=== PATIENT | female | born 1995 | race Caucasian/White ===

== ENCOUNTER 2016-12-02 09:15 | Emergency (ER) | payer MEDICAID ==
[2016-12-02] MEDS ORDERED: FLUCONAZOLE 100 MG TABLET PO STA (11:11)
[2016-12-02] MEDS ORDERED: FLUCONAZOLE 100 MG TABLET ONE (11:17)
== END 2016-12-02 11:21 | disposition home or self-care (01) ==
DX: N76.0 Acute vaginitis (principal)
CPT/HCPCS: 81003; 81025; 87210; 87491; 87591; 99283; A9270

== ENCOUNTER 2018-08-16 09:10 | Emergency (ER) | payer MEDICAID ==
[2018-08-16 09:24] VITALS: BP 126/84
--- NOTE | 2018-08-16 09:58 | ED Physician Documentation ---
PD HPI UPPER EXT INJURY - Stated complaint Stated Complaint: R SHOULDER INJ - Chief complaint Chief Complaint: Ext Problem - History obtained from History obtained from: Patient - History of Present Illness Location: Right, Shoulder Type of injury: Fall (and landed onto right shoulder. Still hurting with ROM.) Timing - onset: How many days ago (3) Timing - duration: Days (3) Timing - details: Abrupt onset, Still present Worsened by: Moving, Palpating (anterolateral) Associated symptoms: No: Weakness, Numbness, Swelling Similar symptoms before: Has not had sx before Recently seen: Not recently seen Review of Systems Constitutional: denies: Fever, Chills Nose: denies: Rhinorrhea / runny nose, Congestion Throat: denies: Sore throat Respiratory: denies: Cough GI: denies: Vomiting, Diarrhea Skin: denies: Abrasion (s), Laceration (s) Neurologic: denies: Focal weakness, Numbness, Altered mental status, Head injury PD PAST MEDICAL HISTORY - Past Medical History Cardiovascular: None Respiratory: None Neuro: None Endocrine/Autoimmune: None Psych: Depression - Past Surgical History Past Surgical History: No - Present Medications Home Medications: Ambulatory Orders Medication Instructions Recorded Confirmed Sertraline [Zoloft] 50 mg PO DAILY 08/16/18 08/16/18 - Allergies Allergies/Adverse Reactions: Allergies Allergy/AdvReac Type Severity Reaction Status Date / Time No Known Drug Allergies Allergy Verified 08/16/18 09:18 - Social History Does the pt smoke?: No Smoking Status: Never smoker Does the pt drink ETOH?: No Does the pt have substance abuse?: No - Immunizations Immunizations are current?: No Immunizations: TDAP >10years/unknown PD ED PE NORMAL - Vitals Vital signs reviewed: Yes - General General: Alert and oriented X 3, No acute distress, Well developed/nourished - Neck Neck: Supple, no meningeal sign, No adenopathy - Cardiac Cardiac: RRR, No murmur - Respiratory Respiratory: Clear bilaterally, Other (no chestwall tenderness) - Derm Derm: Normal color, Warm and dry - Extremities Extremities: Other (right shoulder tender anterior and lateral. No deformity nor dislocation. Not particularly tender at AC. ) - Neuro Neuro: Alert and oriented X 3, No motor deficit, No sensory deficit Results - Vitals Vitals: Vital Signs - 24 hr 08/16/18 09:15 Temperature 36.1 C L Heart Rate 89 Respiratory 18 Rate Blood Pressure 126/84 H O2 Saturation 99 Oxygen O2 Source Room air - Rads (name of study) right shoulder Radiology: Prelim report reviewed (no fractures), See rad report PD MEDICAL DECISION MAKING - ED course Complexity details: reviewed results (no fractures), considered differential, d/w patient Departure - Departure Disposition: 01 Home, Self Care Clinical Impression: Fall from slip, trip, or stumble Qualifiers: Encounter type: initial encounter Qualified Code(s): W01.0XXA - Fall on same level from slipping, tripping and stumbling without subsequent striking against object, initial encounter Right shoulder strain Qualifiers: Encounter type: initial encounter Qualified Code(s): S46.911A - Strain of unspecified muscle, fascia and tendon at shoulder and upper arm level, right arm, initial encounter Condition: Stable Record reviewed to determine appropriate education?: Yes Instructions: ED Sprain Shoulder Follow-Up: [facility] [Provider Group] Comments: Consider some ibuprofen or naproxen twice daily for the next week for inflammation and pain. Add Tylenol if needed for pains. Sling as needed for comfort and progress use of it as able. Follow-up if not improved over the next 1-2 weeks. Discharge Date/Time: 08/16/18 10:39
--- NOTE | 2018-08-16 10:13 | XRAY Report ---
Reason: injury Procedure Date: 08/16/2018 Accession Number: [id number] / [id number] Procedure: XR - Shoulder 3 View RT CPT Code: FULL RESULT: EXAM: RIGHT SHOULDER RADIOGRAPHY EXAM DATE: 08/16/2018 09:38 AM. CLINICAL HISTORY: Fall on outstretched hand injury 2 days ago. [place] like shoulder popped in and out of socket. Difficulty and pain when moving shoulder since then. COMPARISON: Right shoulder partially visualized on chest radiograph included in XR ACUTE ABDOMEN SERIES 07/01/2008 3:23 PM. TECHNIQUE: 3 views. FINDINGS: Bones: Normal. No fracture or bone lesion. Joints: The glenohumeral and acromioclavicular joints are normal. Soft tissues: The visualized hemithorax is unremarkable. No soft tissue swelling. IMPRESSION: Normal shoulder radiography. No acute osseous abnormality. RADIA
[2018-08-16] MEDS ORDERED: IBUPROFEN 600 MG TABLET PO STA (10:21)
[2018-08-16] MEDS ORDERED: ACETAMINOPHEN 325 MG TABLET PO STA (10:21)
== END 2018-08-16 10:39 | disposition home or self-care (01) ==
LOC: ED 09:10
DX: S46.911A Strain of unspecified muscle, fascia and tendon at shoulder and upper arm level, right arm, initial encounter (principal); W01.0XXA Fall on same level from slipping, tripping and stumbling without subsequent striking against object, initial encounter
CPT/HCPCS: 73030; 99282; 99283; A9270

== ENCOUNTER 2020-04-25 11:25 | Emergency (ER) | payer MEDICAID ==
[2020-04-25 12:18] LABS: BASOPHILS % (AUTO) 0.4 %; EOSINOPHILS # (AUTO) 0.2 10^3/uL (0.0-0.7); EOSINOPHILS % (AUTO) 2.7 %; HGB - HEMOGLOBIN 13.5 g/dL (12.0-16.0); LYMPHOCYTES # (AUTO) 2.4 10^3/uL (1.5-3.5); LYMPHOCYTES % (AUTO) 32.7 %; MEAN CORPUSCULAR HEMOGLOBIN 28.7 pg (27.0-31.0); MEAN CORPUSCULAR HGB CONC 32.8 g/dL (32.0-36.0); MEAN CORPUSCULAR VOLUME 87.4 fL (81.0-99.0); MEAN PLATELET VOLUME 10.6 fL (7.9-10.8); MONOCYTES # (AUTO) 0.3 10^3/uL (0.0-1.0); MONOCYTES % (AUTO) 4.4 %; NEUTROPHILS # (AUTO) 4.4 10^3/uL (1.5-6.6); NEUTROPHILS % (AUTO) 59.5 %; PLT - PLATELET COUNT 276 10^3/uL (130-450); WHITE BLOOD COUNT 7.4 x10^3/uL (4.8-10.8)
[2020-04-25 12:35] LABS: ALBUMIN 4.7 g/dL (3.2-5.5); ALBUMIN/GLOBULIN RATIO 1.4 (1.0-2.2); BILIRUBIN,TOTAL 0.8 mg/dL (0.2-1.0); CREATININE 0.7 mg/dL (0.4-1.0)
[2020-04-25 12:49] LABS: BILIRUBIN,URINE NEGATIVE (NEGATIVE); GLUCOSE, URINE (UA) NEGATIVE (NEGATIVE); KETONES,URINE (UA) NEGATIVE (NEGATIVE); LEUKOCYTE ESTERASE, URINE NEGATIVE (NEGATIVE); NITRITE,URINE NEGATIVE (NEGATIVE); OCCULT BLOOD,URINE NEGATIVE (NEGATIVE); PROTEIN,URINE NEGATIVE (NEGATIVE); UROBILINOGEN,URINE 0.2 (NORMAL) E.U./dL (NORMAL)
[2020-04-25 12:57] LABS: CLARITY,URINE CLEAR (CLEAR); HCG UR QUAL NEGATIVE
--- NOTE | 2020-04-25 14:05 | ED Physician Documentation ---
History of Present Illness - Stated complaint Stated Complaint: FEMALE - Chief complaint Chief Complaint: Abd Pain - History obtained from History obtained from: Patient - Additonal information Additional information: Patient comes emergency department complaining of noticing blood in the toilet bowl after stooling today. Patient does note that she has been constipated for about the last week has been hard to push out her stool. Patient is also about 4 months , though she did not notice any hemorrhoids while she was . She states the blood was bright red and she has not noticed any brown or maroon or tarry stools. She did eat some spicy food yesterday and had some GI upset last night. No diarrhea. No fevers or chills. No vomiting. No bleeding from anywhere else. Patient is not on any anticoagulation. Review of Systems Ten Systems: 10 systems reviewed and negative Constitutional: reports: Reviewed and negative Eyes: reports: Reviewed and negative Ears: reports: Reviewed and negative Nose: reports: Reviewed and negative Throat: reports: Reviewed and negative Cardiac: reports: Reviewed and negative Respiratory: reports: Reviewed and negative GI: reports: Bloody / black stool : reports: Reviewed and negative Skin: reports: Reviewed and negative Musculoskeletal: reports: Reviewed and negative Neurologic: reports: Reviewed and negative Psychiatric: reports: Reviewed and negative Endocrine: reports: Reviewed and negative Immunocompromised: reports: Reviewed and negative PD PAST MEDICAL HISTORY - Past Medical History Cardiovascular: None Respiratory: None Neuro: None Endocrine/Autoimmune: None GI: None ROOM SERVICE ATTENDANT: None : None HEENT: None Psych: Depression Musculoskeletal: None Derm: None Other Past Medical History: Esophageal spasm - Past Surgical History Past Surgical History: No /ROOM SERVICE ATTENDANT: section - Present Medications Home Medications: Ambulatory Orders Medication Instructions Recorded Confirmed Sertraline [Zoloft] 50 mg PO DAILY 08/16/18 08/16/18 - Allergies Allergies/Adverse Reactions: Allergies Allergy/AdvReac Type Severity Reaction Status Date / Time No Known Drug Allergies Allergy Verified 04/25/20 11:34 - Social History Does the pt smoke?: No Smoking Status: Never smoker Does the pt drink ETOH?: No Does the pt have substance abuse?: No - Immunizations Immunizations are current?: Yes Immunizations: TDAP >10years/unknown - POLST Patient has POLST: No PD ED PE NORMAL - Vitals Vital signs reviewed: Yes - General General: Alert and oriented X 3, No acute distress - HEENT HEENT: Atraumatic, PERRL, EOMI, Moist mucous membranes - Neck Neck: Supple, no meningeal sign - Cardiac Cardiac: RRR, No murmur, Strong equal pulses - Respiratory Respiratory: No respiratory distress, Clear bilaterally - Abdomen Abdomen: Soft, Non tender, Non distended - Rectal Rectal: Other (No gross blood. Good anal tone. No mass.) - Derm Derm: Warm and dry - Extremities Extremities: No deformity - Neuro Neuro: Alert and oriented X 3 - Psych Psych: Normal mood, Normal affect Results - Vitals Vitals: Vital Signs - 24 hr 04/25/20 04/25/20 04/25/20 11:35 12:50 14:08 Temperature 36.4 C L Heart Rate 86 72 67 Respiratory 18 16 16 Rate Blood Pressure 114/74 122/87 H 123/77 O2 Saturation 97 100 100 Oxygen O2 Source Room air - Labs Labs: Laboratory Tests 04/25/20 04/25/20 04/25/20 11:45 12:13 12:13 WBC 7.4 RBC 4.70 Hgb 13.5 Hct 41.1 MCV 87.4 MCH 28.7 MCHC 32.8 RDW 13.0 Plt Count 276 MPV 10.6 Neut # (Auto) 4.4 Lymph # (Auto) 2.4 [place] # (Auto) 0.3 Eos # (Auto) 0.2 Baso # (Auto) 0.0 Absolute Nucleated RBC 0.00 Nucleated RBC % 0.0 Sodium 140 Potassium 4.3 Chloride 107 Carbon Dioxide 22 Anion Gap 11.0 BUN 20 Creatinine 0.7 Estimated GFR (MDRD) 101 Glucose 85 Calcium 9.0 Total Bilirubin 0.8 AST 17 ALT 17 Alkaline Phosphatase 109 Total Protein 8.0 Albumin 4.7 Globulin 3.3 Albumin/Globulin Ratio 1.4 Lipase 33 Urine Color YELLOW Urine Clarity CLEAR Urine pH 5.0 Ur Specific [place] >=1.030 H Urine Protein NEGATIVE Urine Glucose (UA) NEGATIVE Urine Ketones NEGATIVE Urine Occult Blood NEGATIVE Urine Nitrite NEGATIVE Urine Bilirubin NEGATIVE Urine Urobilinogen 0.2 (NORMAL) Ur Leukocyte Esterase NEGATIVE Ur Microscopic Review NOT INDICATED Urine Culture Comments NOT INDICATED Urine HCG, Qual NEGATIVE PD MEDICAL DECISION MAKING - ED course Complexity details: reviewed results, re-evaluated patient, considered differential, d/w patient ED course: Pt's h/h were normal. Rectal exam was unremarkable. I d/w pt that there is no evidence at this point that she is losing a dangerous amount of blood. We have discussed the need for follow up, should the sx continue. Departure - Departure Disposition: 01 Home, Self Care Clinical Impression: Hematochezia Condition: Stable Instructions: ED Hematochezia Stable Comments: Your labs look good. There is no evidence that you have lost a dangerous amount of blood. Additionally, your rectal exam shows no blood in your rectum at this time. Most likely, your bleeding is the results of your constipation plus some internal hemorrhoids. The best way to prevent this is by eating a high-fiber diet to help soften your stools. You may use some laxatives, but the most effective and helpful way to deal with this is by dietary modification. If you continue to have blood in your stools for more than the next couple of weeks, please speak with your primary care physician about having a colonoscopy done. Discharge Date/Time: 04/25/20 14:22
[2020-04-25 14:10] VITALS: BP 123/77
== END 2020-04-25 14:22 | disposition home or self-care (01) ==
LOC: ED 11:25
DX: K92.1 Melena (principal)
CPT/HCPCS: 36415; 80053; 81001; 81003; 81025; 83690; 85025; 87086; 99282; 99283

== ENCOUNTER 2020-08-23 13:28 | Outpatient (CLI) | payer MEDICAID ==
--- NOTE | 2020-08-23 16:42 | XRAY Report ---
PROCEDURE: Knee 3 View BILAT INDICATIONS: BILATERAL KNEE PX TECHNIQUE: 3 views of the bilateral knee(s) were acquired. COMPARISON: None. FINDINGS: Bones: No fractures or dislocations. No suspicious bony lesions. Soft tissues: No joint effusion. No suspicious soft tissue calcifications. IMPRESSION: No acute osseous abnormality. Reviewed by: Bella Arias MD on 08/23/2020 4:41 PM PST Approved by: Bella Arias MD on 08/23/2020 4:41 PM [facility] Station ID: [id number]
== END 2020-08-23 23:59 | disposition home or self-care (01) ==
LOC: DI.N 13:28
PROVIDERS: ATTEND Family Medicine
DX: M25.562 Pain in left knee (principal); M25.561 Pain in right knee

== ENCOUNTER 2021-02-06 12:46 | Outpatient (CLI) | payer MEDICAID | END 2021-02-06 12:47 | disposition home or self-care (01) | LOC: RT 12:46 | PROVIDERS: ATTEND Physician Assistant Medical | DX: J45.909 Unspecified asthma, uncomplicated (principal) | CPT/HCPCS: 94010 ==

== ENCOUNTER 2021-06-23 20:07 | Emergency (ER) | payer MEDICAID ==
[2021-06-23 20:34] LABS: BILIRUBIN,URINE NEGATIVE (NEGATIVE); GLUCOSE, URINE (UA) NEGATIVE (NEGATIVE); KETONES,URINE (UA) TRACE mg/dL (NEGATIVE); LEUKOCYTE ESTERASE, URINE NEGATIVE (NEGATIVE); NITRITE,URINE NEGATIVE (NEGATIVE); OCCULT BLOOD,URINE NEGATIVE (NEGATIVE); PROTEIN,URINE NEGATIVE (NEGATIVE); UROBILINOGEN,URINE 0.2 (NORMAL) E.U./dL (NORMAL)
[2021-06-23 20:38] LABS: CLARITY,URINE CLEAR (CLEAR); HCG UR QUAL NEGATIVE
[2021-06-23 20:42] LABS: BASOPHILS % (AUTO) 0.2 %; EOSINOPHILS # (AUTO) 0.2 10^3/uL (0.0-0.7); HCT - HEMATOCRIT 40.7 % (37.0-47.0); HGB - HEMOGLOBIN 13.9 g/dL (12.0-16.0); LYMPHOCYTES # (AUTO) 3.5 10^3/uL (1.5-3.5); LYMPHOCYTES % (AUTO) 38.4 %; MEAN CORPUSCULAR HEMOGLOBIN 30.1 pg (27.0-31.0); MEAN CORPUSCULAR HGB CONC 34.2 g/dL (32.0-36.0); MEAN CORPUSCULAR VOLUME 88.1 fL (81.0-99.0); MEAN PLATELET VOLUME 10.4 fL (7.9-10.8); MONOCYTES # (AUTO) 0.5 10^3/uL (0.0-1.0); MONOCYTES % (AUTO) 5.8 %; NEUTROPHILS # (AUTO) 4.9 10^3/uL (1.5-6.6); NEUTROPHILS % (AUTO) 53.4 %; PLT - PLATELET COUNT 314 10^3/uL (130-450); RED BLOOD COUNT 4.62 10^6/uL (4.20-5.40); RED CELL DISTRIBUTION WIDTH 11.9 % (12.0-15.0); WHITE BLOOD COUNT 9.2 x10^3/uL (4.8-10.8)
[2021-06-23] MEDS ORDERED: ONDANSETRON 4 MG/2 ML VIAL IVP STA (20:42)
[2021-06-23] MEDS ORDERED: SODIUM CHLORIDE 0.9% 1,000 ML IV STA (20:42)
[2021-06-23 20:55] LABS: ALBUMIN 4.6 g/dL (3.2-5.5); ALBUMIN/GLOBULIN RATIO 1.6 (1.0-2.2); BILIRUBIN,TOTAL 0.5 mg/dL (0.2-1.0); CALCIUM 8.8 mg/dL (8.5-10.3); CREATININE 0.6 mg/dL (0.4-1.0); POTASSIUM 3.5 mmol/L (3.5-5.0); TOTAL PROTEIN 7.5 g/dL (6.7-8.2)
[2021-06-23] MEDS ORDERED: PROCHLORPERAZINE 10 MG/2 ML VIAL IVP STA (21:00)
[2021-06-23] MEDS ORDERED: diphenhydrAMINE INJ 50 MG/ML VIAL IVP STA (21:00)
--- NOTE | 2021-06-23 21:19 | ED Physician Documentation ---
History of Present Illness - Stated complaint Stated Complaint: nausea,pelvic px,migraine - Chief complaint Chief Complaint: Neuro - Additonal information Additional information: 25-year-old female presents the emergency department for 2 concerns: 1. Has been a headache with associated nausea for about 3 days. Feels similar to previous migraines. No fevers no vomiting. 2. Her second concern is that she has been having lower abdominal cramping as well as increased vaginal discharge. She has only ever had discharge like this when she is . Last menstrual period was last month has not had a test today. She is concerned about the placement of her IUD as she has been unable to feel the strings. Review of Systems Constitutional: denies: Fever, Chills Eyes: reports: Photophobia. denies: Loss of vision Ears: reports: Reviewed and negative Nose: reports: Reviewed and negative Throat: reports: Reviewed and negative Cardiac: reports: Reviewed and negative Respiratory: denies: Dyspnea, Cough GI: reports: Abdominal Pain, Nausea : reports: Other (vaginal dc). denies: Dysuria, Frequency Skin: reports: Reviewed and negative PD PAST MEDICAL HISTORY - Past Medical History Past Medical History: Yes Cardiovascular: None Respiratory: None Neuro: Migraines Endocrine/Autoimmune: None GI: None CONFERENCE SERVICES DIRECTOR: None : None HEENT: None Psych: Depression Musculoskeletal: None Derm: None - Past Surgical History Past Surgical History: Yes /CONFERENCE SERVICES DIRECTOR: section - Present Medications Home Medications: Ambulatory Orders Medication Instructions Recorded Confirmed metroNIDAZOLE [Flagyl] 500 mg PO BID 7 Days #14 tablet 06/23/21 - Allergies Allergies/Adverse Reactions: Allergies Allergy/AdvReac Type Severity Reaction Status Date / Time No Known Drug Allergies Allergy Verified 06/23/21 20:30 - Social History Does the pt smoke?: No Smoking Status: Never smoker Does the pt drink ETOH?: No Does the pt have substance abuse?: No - Immunizations Immunizations are current?: Yes Immunizations: TDAP >10years/unknown - POLST Patient has POLST: No PD ED PE EXPANDED - General General: Alert, No acute distress - Cardiac Cardiac: Regular Rate, Radial strong equal, Pedal strong equal, Cap refill < 2 sec. No: Murmur Present - Respiratory Respiratory: Clear to ausultation jesica. No: Distress, Labored - Abdomen Abdomen: Normal Bowel sounds, Tender to palpation (Mild midline lower pelvic tenderness without guarding or rebound. Negative McBurney's.) - Female Female : Normal external, Vaginal Discharge (Copious thick white vaginal discharge. No CMT or adnexal tenderness. Uterus was mildly tender on bimanual palpation.), Cultures sent. No: CMT, Adnexal Tenderness - Back Back: Normal exam, Soft tissue tenderness - Derm Derm: Normal color, Warm and dry. No: Rash - Extremities Extremities: Normal. No: Deformity, Tenderness - Neuro Neuro: Alert and Oriented X 3, CNII-XII intact Results - Vitals Vitals: Vital Signs - 24 hr 06/23/21 06/23/21 06/23/21 20:10 21:21 22:00 Temperature 37.1 C Heart Rate 106 H 90 92 Respiratory 18 16 14 Rate Blood Pressure 128/91 H 116/80 112/88 H O2 Saturation 96 100 100 Oxygen O2 Source Room air - Labs Labs: Microbiology 06/23/21 20:56 Wet Prep - Final Vaginal Laboratory Tests 06/23/21 06/23/21 06/23/21 20:21 20:33 20:33 WBC 9.2 RBC 4.62 Hgb 13.9 Hct 40.7 MCV 88.1 MCH 30.1 MCHC 34.2 RDW 11.9 L Plt Count 314 MPV 10.4 Neut # (Auto) 4.9 Lymph # (Auto) 3.5 [place] # (Auto) 0.5 Eos # (Auto) 0.2 Baso # (Auto) 0.0 Absolute Nucleated RBC 0.00 Nucleated RBC % 0.0 Sodium 138 Potassium 3.5 Chloride 104 Carbon Dioxide 24 Anion Gap 10.0 BUN 17 Creatinine 0.6 Estimated GFR (MDRD) 120 Glucose 96 Calcium 8.8 Total Bilirubin 0.5 AST 14 ALT 10 Alkaline Phosphatase 76 Total Protein 7.5 Albumin 4.6 Globulin 2.9 Albumin/Globulin Ratio 1.6 Lipase 38 Urine Color YELLOW Urine Clarity CLEAR Urine pH 6.0 Ur Specific [place] 1.025 Urine Protein NEGATIVE Urine Glucose (UA) NEGATIVE Urine Ketones TRACE Urine Occult Blood NEGATIVE Urine Nitrite NEGATIVE Urine Bilirubin NEGATIVE Urine Urobilinogen 0.2 (NORMAL) Ur Leukocyte Esterase NEGATIVE Ur Microscopic Review NOT INDICATED Urine Culture Comments NOT INDICATED Urine HCG, Qual NEGATIVE - Rads (name of study) Pelvic US Radiology: Final report received (No torsion bilaterally. Right simple cyst. Left complex ovarian cyst.) PD MEDICAL DECISION MAKING - ED course Complexity details: reviewed results, re-evaluated patient, considered differential, d/w patient ED course: 25-year-old female presents the emergency department for evaluation of lower abdominal cramping as well as vaginal discharge. Pelvic exam was not consistent with CMT but there is copious pelvic discharge. Wet mount confirms the presence of clue cells consistent with bacterial vaginosis. Patient will be started on Flagyl. The pelvic ultrasound showed bilateral ovarian cyst but no findings of torsion. She also presented with a headache and nausea that 100% resolved with IV fluids Compazine and Zofran. I suspect a migraine variant. There are no red flags, fevers sudden onset or focal neuro deficits. Advised close follow-up with PCP. Emergent return precautions otherwise discussed. Departure - Departure Clinical Impression: Bacterial vaginosis Headache Qualifiers: Headache type: unspecified Headache chronicity pattern: acute headache Intractability: not intractable Qualified Code(s): R51.9 - Headache, unspecified Ovarian cyst Qualifiers: Laterality: bilateral Qualified Code(s): N83.201 - Unspecified ovarian cyst, right side; N83.202 - Unspecified ovarian cyst, left side Condition: Stable Record reviewed to determine appropriate education?: Yes Instructions: ED Vaginosis Bacterial Prescriptions: metroNIDAZOLE [Flagyl] 500 mg PO BID 7 Days #14 tablet Comments: Catherine wayne were seen in the emergency department today for headache, nausea as well as vaginal discharge and lower pelvic cramping. Your screening labs did not show any worrisome findings. I was able to find your IUD strings on the pelvic exam. However you did have a light of vaginal discharge. The screening lab that we sent does show that you have a condition called bacterial vaginosis. As we discussed at the bedside I would like you to fill the prescription for the Flagyl and begin taking twice daily for the next week. The ultrasound did not show any inflammation in your uterus or infection. You do have some ovarian cysts which are very common findings but not likely contributing to your lower abdominal discomfort. Please discuss this ED visit with your primary care doctor. Return immediately to the ER if your symptoms worsen, you develop fevers, have suddenly severe abdominal pain or uncontrolled vomiting.
--- NOTE | 2021-06-23 22:14 | Ultrasound Report ---
PROCEDURE: Pelvic w/Transvag+Doppler Comp INDICATIONS: pelvic cramping; ? PID TECHNIQUE: Real-time scanning was performed of the pelvic organs, with image documentation. Additional endovagi nal scanning was necessary due to incomplete visualization of the adnexal and endometrial structures by transabdominal scanning. COMPARISON: None. FINDINGS: No pathologic free abdominal or pelvic fluid. Uterus: Uterus is normal in size at 8.4 x 4.3 x 5.5 cm. The endometrium measures 3.1 mm in combined thickness. IUD is present in appropriate position. Ovaries: Right ovary measures 2.6 x 1.2 x 3.0 cm, volume 5.5 cc. There is a focus of decreased echog enicity within the right ovary measuring 1.6 x 1.1 x 1.6 cm. Left ovary measures 4.3 x 3.2 x 5.1 cm, volume of 36 cc. There is a focus of complex echogenicity within the left ovary measuring 3.2 x 2.2 x 3.2 cm. Normal Doppler flows identified within the ovaries bilaterally. IMPRESSION: 1. Simple right ovarian cyst. 2. Complex left ovarian cyst suggestive of hemorrhagic cyst. Reviewed by: Bella Arias MD on 06/23/2021 10:12 PM PST Approved by: Bella Arias MD on 06/23/2021 10:12 PM PST Station ID: [id number]
[2021-06-23 22:15] VITALS: BP 119/86
[2021-06-24 00:11] LABS: CHLAMYDIA TRACHOMATIS DNA NEGATIVE (NEGATIVE); NEISSERIA GONORRHOEAE DNA NEGATIVE (NEGATIVE); TRICHOMONAS VAGINALIS DNA NEGATIVE (NEGATIVE)
== END 2021-06-23 22:12 | disposition home or self-care (01) ==
LOC: ED 20:07
DX: N76.0 Acute vaginitis (principal); B96.89 Other specified bacterial agents as the cause of diseases classified elsewhere; R51.9 Headache, unspecified; R11.0 Nausea; N83.201 Unspecified ovarian cyst, right side; N83.202 Unspecified ovarian cyst, left side; Z97.5 Presence of (intrauterine) contraceptive device
CPT/HCPCS: 36415; 76830; 76856; 80053; 81003; 81025; 83690; 85025; 87210; 87491; 87591; 87661; 93975; 96374; 96375; 99284; J1200; 81001; 87086

== ENCOUNTER 2021-09-25 15:02 | Outpatient (CLI) | payer MEDICAID ==
[2021-09-25 18:14] LABS: ALBUMIN 4.7 g/dL (3.2-5.5); ALBUMIN/GLOBULIN RATIO 1.5 (1.0-2.2); BILIRUBIN,TOTAL 0.6 mg/dL (0.2-1.0); CALCIUM 9.1 mg/dL (8.5-10.3); CREATININE 0.7 mg/dL (0.4-1.0); TOTAL PROTEIN 7.8 g/dL (6.7-8.2)
[2021-09-25 18:31] LABS: THYROID STIMULATING HORMONE 1.41 uIU/mL (0.34-5.60)
[2021-09-25 18:33] LABS: FREE T3 3.23 pg/mL (2.5-3.9)
[2021-09-25 18:34] LABS: FREE T4 (FREE THYROXINE) 0.96 ng/dL (0.58-1.64)
[2021-09-25 18:38] LABS: PROLACTIN 19.27 ng/mL
[2021-09-25 21:48] LABS: HCG,QUALITATIVE BLOOD NEGATIVE
== END 2021-09-25 15:03 | disposition home or self-care (01) ==
LOC: LAB.N 15:02
PROVIDERS: ATTEND Physician Assistant
DX: N64.52 Nipple discharge (principal)
CPT/HCPCS: 36415; 80053; 84146; 84439; 84443; 84481; 84703

== ENCOUNTER 2021-11-20 08:00 | Outpatient (CLI) | payer MEDICAID | END 2021-11-20 08:01 | disposition home or self-care (01) | LOC: LAB.N 08:00 | PROVIDERS: ATTEND Nurse Practitioner | DX: B34.9 Viral infection, unspecified (principal); Z20.822 Contact with and (suspected) exposure to COVID-19 ==

== ENCOUNTER 2022-06-24 10:00 | Outpatient (CLI) | payer MEDICAID ==
--- NOTE | 2022-06-24 11:18 | XRAY Report ---
PROCEDURE: Lumbar Spine 2 View INDICATIONS: LOW BACK PAIN,UNSPECIFIED TECHNIQUE: 2 views of the lumbar spine were acquired. COMPARISON: None. FINDINGS: Bones: 6 [id number] vertebrae are present. For the purposes of this report, the lowest well-for med disc space is designated as L5-S1 the thoracolumbar transitional element is designated T12. There is bilateral spondylolysis of L5 with grade 1 anterolisthesis of L5 on S1 measuring approximate ly 3 mm. No vertebral body compression fractures. No suspicious bony lesions. Soft tissues: Overlying bowel gas pattern is normal. No suspicious soft tissue calcifications. IMPRESSION: 1.No acute osseous abnormality. If symptoms persist or there is continued clinical concern, further e valuation with MRI or CT may be helpful. 2.Transitional thoracolumbar anatomy as described in the body the report. Correlation with complete s pine radiographs is recommended prior to any elective surgical procedure. 3.Bilateral spondylolysis of L5 with mild grade 1 anterolisthesis of L5 on S1. Reviewed by: Jhony Balbuena MD on 06/24/2022 11:16 AM PST Approved by: Jhony Balbuena MD on 06/24/2022 11:16 AM PST Station ID: [id number]
== END 2022-06-24 10:01 | disposition home or self-care (01) ==
LOC: DI 10:00
PROVIDERS: ATTEND Family Medicine
DX: M47.816 Spondylosis without myelopathy or radiculopathy, lumbar region (principal); M43.17 Spondylolisthesis, lumbosacral region

== ENCOUNTER 2022-08-12 08:00 | Outpatient (CLI) | payer MEDICAID ==
[2022-08-12 17:44] LABS: BASOPHILS % (AUTO) 0.3 %; EOSINOPHILS # (AUTO) 0.1 10^3/uL (0.0-0.7); HCT - HEMATOCRIT 44.4 % (37.0-47.0); HGB - HEMOGLOBIN 14.4 g/dL (12.0-16.0); LYMPHOCYTES # (AUTO) 2.1 10^3/uL (1.5-3.5); LYMPHOCYTES % (AUTO) 28.7 %; MEAN CORPUSCULAR HGB CONC 32.4 g/dL (32.0-36.0); MEAN CORPUSCULAR VOLUME 89.5 fL (81.0-99.0); MONOCYTES # (AUTO) 0.3 10^3/uL (0.0-1.0); MONOCYTES % (AUTO) 4.1 %; NEUTROPHILS # (AUTO) 4.8 10^3/uL (1.5-6.6); NEUTROPHILS % (AUTO) 65.6 %; PLT - PLATELET COUNT 338 10^3/uL (130-450); RED BLOOD COUNT 4.96 10^6/uL (4.20-5.40); RED CELL DISTRIBUTION WIDTH 12.3 % (12.0-15.0); WHITE BLOOD COUNT 7.4 x10^3/uL (4.8-10.8)
[2022-08-12 17:56] LABS: ALBUMIN 4.7 g/dL (3.2-5.5); ALBUMIN/GLOBULIN RATIO 1.4 (1.0-2.2); BILIRUBIN,TOTAL 0.6 mg/dL (0.2-1.0); CALCIUM 9.1 mg/dL (8.5-10.3); CREATININE 0.7 mg/dL (0.4-1.0); TOTAL PROTEIN 8.1 g/dL (6.7-8.2)
== END 2022-08-12 23:59 | disposition home or self-care (01) ==
LOC: LAB.N 08:00
PROVIDERS: ATTEND Physician Assistant Medical
DX: R53.83 Other fatigue (principal)
CPT/HCPCS: 36415; 80053; 83690; 84443; 85025

== ENCOUNTER 2022-09-27 23:00 | Outpatient (CLI) | payer MEDICAID | END 2022-09-27 23:01 | disposition critical access hospital (66) | LOC: EMS 23:00 | DX: R10.84 Generalized abdominal pain (principal); R11.2 Nausea with vomiting, unspecified; R19.7 Diarrhea, unspecified; R53.81 Other malaise | CPT/HCPCS: A0425; A0427; A0999 ==

== ENCOUNTER 2022-09-27 23:17 | Emergency (ER) | payer MEDICAID ==
--- OUTSIDE RECORDS SUMMARY | 2022-09-27 23:41 | EXTERNAL MEDICAL SUMMARY RPT | Continuity of Care Document ---
:1995 Author Organization [facility] Address [address] [place] [address] Phone Allergies No information. Encounters No information. Functional Status No information. Immunizations No information. Medications No information. Problems date description facility 2022-09-16 17:01 Spondylolisthesis, [facility] 2022-09-16 17:01 Strain of muscle, fascia and tendon of [facility] back, initial e Procedures No information. Results/Labs test date author facility value unit interpret ation Result panel 1 (unknown) (no (unknown) (unknown) (no value) (units (unk nown) date) unknown) (unknown) (no (unknown) (unknown) [id number] (units (unkno wn) date) unknown) (unknown) (no (unknown) (unknown) 09/16/22 (units (unkno wn) date) unknown) (unknown) (no (unknown) (unknown) [address] [place] [address] (units (unknown) date) unknown) (unknown) (no (unknown) (unknown) 09/04/2022, 15:25. (units (unknown) date) unknown) (unknown) (no (unknown) (unknown) 5 VIEWS, (units (unkno wn) date) unknown) (unknown) (no (unknown) (unknown) Accession Number: (units (unknown) date) [id number] unknown) (unknown) (no (unknown) (unknown) Age/Sex: 26 / F (units (unknown) date) Date of Service: unknown) (unknown) (no (unknown) (unknown) Alignment and (units ( unknown) date) Curvature: There unknown) is minimal anterolisthesis at L5-S1. (unknown) (no (unknown) (unknown) NICOLE Gilbert (units ( unknown) date) [id number] unknown) (unknown) (no (unknown) (unknown) Approved by: (units (u nknown) date) Valdemar Ivory, unknown) M.D. on 09/16/2022 at 17:39 (unknown) (no (unknown) (unknown) Bone Marrow: (units (u nknown) date) Marrow is of unknown) normal overall signal. No acute vertebral body (unknown) (no (unknown) (unknown) COMPAR[facility]: (units (un known) date[facility] WITH FLEXION EXTENSION (unknown) (no (unknown) (unknown) : 1995 (units (unknown) date) Acct:[id number] unknown) (unknown) (no (unknown) (unknown) Dictated by: (units (u nknown) date) cari Saenz M.D. on 09/16/2022 at 17:37 (unknown) (no (unknown) (unknown) FINDINGS: (units (unkn own) date) unknown) (unknown) (no (unknown) (unknown) IMPRESSION: Focal (units (unknown) date) mild L5-S1 unknown) degenerative change. (unknown) (no (unknown) (unknown) INDICATIONS: (units (u nknown) date) SPONDYLOLISTHESIS, unknown) LUMBAR REGION (unknown) (no (unknown) (unknown) Image quality: (units (unknown) date) Diagnostic. 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 unknown) (unknown) (no (unknown) (unknown) L2-L3: Normal (units ( unknown) date) appearance. unknown) (unknown) (no (unknown) (unknown) L3-L4: Normal (units ( unknown) date) appearance. unknown) (unknown) (no (unknown) (unknown) L4-L5: Normal (units ( unknown) date) appearance. unknown) (unknown) (no (unknown) (unknown) L5-S1: The disc (units (unknown) date) height and disk unknown) signal are well-preserved. Mild generalized (unknown) (no (unknown) (unknown) Loc: MRI (units (unkno wn) date) unknown) (unknown) (no (unknown) (unknown) Magnetic (units (unkno wn) date) Resonance Report unknown) (unknown) (no (unknown) (unknown) No significant (units (unknown) date) central canal unknown) narrowing is seen. (unknown) (no (unknown) (unknown) Noncontrast (units (un known) date) sagittal T1 spin unknown) echo and T2 fast echo, sagittal STIR, and T2 fast (unknown) (no (unknown) (unknown) Ordering (units (unkno wn) date) Provider: unknown) Hodan Quezada P.A-C (unknown) (no (unknown) (unknown) PROCEDURE: MR (units ( unknown) date) LUMBAR SPINE WO unknown) CON (unknown) (no (unknown) (unknown) Paraspinous Soft (units (unknown) date) Tissues: No unknown) paravertebral masses. (unknown) (no (unknown) (unknown) Patient: (units (unkno wn) date) Catherine Singh J unknown) MR#: [id number] (unknown) (no (unknown) (unknown) Procedure: MR (units ( unknown) date) lumbar spine wo unknown) con (unknown) (no (unknown) (unknown) Signed (units (unkno wn) date) unknown) (unknown) (no (unknown) (unknown) Spinal Cord: (units (u nknown) date) Conus medullaris unknown) terminates at the L1 level. Visualized cord (unknown) (no (unknown) (unknown) T12-L1: Normal (units (unknown) date) appearance. unknown) (unknown) (no (unknown) (unknown) TECHNIQUE: (units (unk nown) date) unknown) (unknown) (no (unknown) (unknown) compression (units (un known) date) unknown) (unknown) (no (unknown) (unknown) demonstrates (units (u nknown) date) unknown) (unknown) (no (unknown) (unknown) disc bulge (units (unk nown) date) unknown) (unknown) (no (unknown) (unknown) fractures. (units (unk nown) date) unknown) (unknown) (no (unknown) (unknown) is seen. There is (units (unknown) date) mild right-sided unknown) and moderate left-sided neural foraminal (unknown) (no (unknown) (unknown) level. (units (unkno wn) date) unknown) (unknown) (no (unknown) (unknown) may be performed. (units (unknown) date) unknown) (unknown) (no (unknown) (unknown) narrowing. (units (unk nown) date) unknown) (unknown) (no (unknown) (unknown) normal signal and (units (unknown) date) size. unknown) (unknown) (no (unknown) (unknown) spin echo (units (unkn own) date) unknown) (unknown) (no (unknown) (unknown) through the (units (un known) date) lumbar spine. In unknown) cases with scoliosis, additional coronal T2 fast Social History No information. Vital Signs No information.
[2022-09-28 00:08] LABS: BASOPHILS % (AUTO) 0.2 %; EOSINOPHILS # (AUTO) 0.1 10^3/uL (0.0-0.7); EOSINOPHILS % (AUTO) 0.8 %; HCT - HEMATOCRIT 37.1 % (37.0-47.0); HGB - HEMOGLOBIN 12.1 g/dL (12.0-16.0); LYMPHOCYTES # (AUTO) 1.1 10^3/uL (1.5-3.5); LYMPHOCYTES % (AUTO) 10.1 %; MEAN CORPUSCULAR HGB CONC 32.6 g/dL (32.0-36.0); MEAN PLATELET VOLUME 10.5 fL (7.9-10.8); MONOCYTES # (AUTO) 0.5 10^3/uL (0.0-1.0); MONOCYTES % (AUTO) 4.5 %; NEUTROPHILS % (AUTO) 84.1 %; PLT - PLATELET COUNT 244 10^3/uL (130-450); RED BLOOD COUNT 4.17 10^6/uL (4.20-5.40); RED CELL DISTRIBUTION WIDTH 11.9 % (12.0-15.0); WHITE BLOOD COUNT 10.8 x10^3/uL (4.8-10.8)
--- NOTE | 2022-09-28 00:13 | ED Physician Documentation ---
PD HPI NVD - Stated complaint Stated Complaint: ABD PAIN - Chief complaint Chief Complaint: Abd Pain - History obtained from History obtained from: Patient - History of Present Illness Timing - onset: How many days ago (1) Timing - duration: Days (1) Timing - details: Abrupt onset, Still present Associated symptoms: Abdominal pain (cramping intemittent), Loss of appetite. No: Fever, Hematemesis, Melena Contributing factors: No: Bad food, Recent antibiotics Similar symptoms before: Has not had sx before Review of Systems Constitutional: reports: Myalgias, Fatigue. denies: Fever Nose: denies: Rhinorrhea / runny nose, Congestion Throat: denies: Sore throat Respiratory: denies: Cough GI: reports: Abdominal Pain (cramping intermittent), Nausea, Vomiting, Diarrhea. 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 - Past Surgical History Past Surgical History: Yes /MOLDER FLOOR: section - Present Medications Home Medications: Ambulatory Orders Medication Instructions Recorded Confirmed Atomoxetine HCl [Strattera] 40 mg PO DAILY 09/27/22 09/27/22 Acetaminophen [Acetaminophen Extra 500 mg PO QID PRN #50 tablet 09/28/22 Strength] HYDROcod/ACETAM 5/325 [[place] 5/325] 1 ea PO Q6H PRN #12 tablet 09/28/22 Ondansetron Odt [Zofran] 4 mg TL Q6H PRN #10 tablet 09/28/22 tiZANidine [Zanaflex] 4 mg PO Q8H PRN #25 tablet 09/28/22 - Allergies Allergies/Adverse Reactions: Allergies Allergy/AdvReac Type Severity Reaction Status Date / Time No Known Drug Allergies Allergy Verified 09/27/22 23:25 - Social History Does the pt smoke?: No Smoking Status: Never smoker Does the pt drink ETOH?: Yes Does the pt have substance abuse?: No Substance Use and Type: Marijuana - Immunizations Immunizations are current?: Yes Immunizations: TDAP >10years/unknown - POLST Patient has POLST: No PD ED PE NORMAL - Vitals Vital signs reviewed: Yes - General General: Alert and oriented X 3, Well developed/nourished, Other (appears uncomfortable due to nausea and back pain. ) - HEENT HEENT: Pharynx benign - Neck Neck: Supple, no meningeal sign, No adenopathy - Cardiac Cardiac: RRR, No murmur - Respiratory Respiratory: Clear bilaterally - Abdomen Abdomen: Soft, Non tender, Non distended - Derm Derm: Normal color, Warm and dry - Neuro Neuro: Alert and oriented X 3, No motor deficit, No sensory deficit Results - Vitals Vitals: Oxygen O2 Source Room air - Labs Labs: Laboratory Tests 09/28/22 09/28/22 09/28/22 00:03 00:03 01:05 WBC 10.8 RBC 4.17 L Hgb 12.1 Hct 37.1 MCV 89.0 MCH 29.0 MCHC 32.6 RDW 11.9 L Plt Count 244 MPV 10.5 Neut # (Auto) 9.0 H Lymph # (Auto) 1.1 L [place] # (Auto) 0.5 Eos # (Auto) 0.1 Baso # (Auto) 0.0 Absolute Nucleated RBC 0.00 Nucleated RBC % 0.0 Sodium 138 Potassium 3.8 Chloride 109 Carbon Dioxide 25 Anion Gap 4.0 L BUN 18 Creatinine 0.8 Estimated GFR (MDRD) 85 L Glucose 94 Calcium 7.7 L Total Bilirubin 0.7 AST 12 ALT 10 Alkaline Phosphatase 55 Total Protein 6.5 L Albumin 3.9 Globulin 2.6 Albumin/Globulin Ratio 1.5 Lipase 29 Urine Color DARK YELLOW Urine Clarity CLEAR Urine pH 5.5 Ur Specific [place] >=1.030 H Urine Protein 30 H Urine Glucose (UA) NEGATIVE Urine Ketones TRACE Urine Occult Blood LARGE H Urine Nitrite NEGATIVE Urine Bilirubin NEGATIVE Urine Urobilinogen 0.2 (NORMAL) Ur Leukocyte Esterase NEGATIVE Urine RBC 6-10 H Urine WBC 0-3 Ur Squamous Epith Cells MOD Squamous H Urine Bacteria Few Urine Mucus Few Strands Ur Microscopic Review INDICATED Urine Culture Comments NOT INDICATED PD Medical Decision Making - ED course Complexity details: reviewed results, considered differential, d/w patient ED course: The patient has had ongoing low back pain. She started with nausea and vomiting with some loose stool today. It seems likely to be of viral gastroenteritis. She does not have any abdominal tenderness. The vomiting has increased her back pain but that was again pre-existing. No noted blood in her vomit. She was given IV fluids as well as medication of ondansetron for nausea and Dilaudid for pain mainly of her back with to help with stomach cramps as well. Recheck of the abdomen still did not show any local tenderness or actually any tenderness at all on reexam. She is able to take fluids okay after the fluids and antiemetics. At this point it seems reasonable the patient is stable for discharge. I did not see need for imaging of the abdomen such as CT scan as I had low suspicion for local process such as appendix or gallbladder. Departure - Departure Disposition: 01 Home, Self Care Clinical Impression: Lumbar back pain Nausea and vomiting Qualifiers: Vomiting type: unspecified Qualified Code(s): R11.2 - Nausea with vomiting, unspecified Condition: Stable Record reviewed to determine appropriate education?: Yes Instructions: ED Nausea Vomiting Prescriptions: Acetaminophen [Acetaminophen Extra Strength] 500 mg PO QID PRN #50 tablet PRN Reason: Pain HYDROcod/ACETAM 5/325 [[place] 5/325] 1 ea PO Q6H PRN #12 tablet PRN Reason: Pain tiZANidine [Zanaflex] 4 mg PO Q8H PRN #25 tablet PRN Reason: Spasms Ondansetron Odt [Zofran] 4 mg TL Q6H PRN #10 tablet PRN Reason: Nausea / Vomiting Comments: It's good you are feeling a bit better here with the fluids and medications. Most likely your nausea and vomiting relates to an acute viral illness. I would presume it to last for 2 to 3 days. Use ondansetron every 4-6 hours if needed for nausea and vomiting. Small frequent fluids and bland food. You can add antacid such as Maalox or Mylanta if needed. Tylenol every 4-6 hours if needed for pains. I would avoid anti-inflammatory such as ibuprofen or naproxen since your stomach is likely irritated from this. Also avoid spicy foods for several days. Regarding your back pain, I would suggest Tylenol 4 times daily regularly to help with pain. Add hydrocodone/acetaminophen every 6-8 hours sparingly if needed for worse pain at times. You could also try tizanidine muscle relaxant and see if that helps as well. Follow-up with the pain clinic I believe you you said you are had an appointment with. Follow-up with your primary care if the nausea part has not improved over the next couple of days. Return to the ER if needed. I sent your prescriptions to your preferred pharmacy, [facility]. Discharge Date/Time: 09/28/22 02:39
[2022-09-28 00:21] LABS: ALBUMIN 3.9 g/dL (3.2-5.5); ALBUMIN/GLOBULIN RATIO 1.5 (1.0-2.2); BILIRUBIN,TOTAL 0.7 mg/dL (0.2-1.0); CALCIUM 7.7 mg/dL (8.5-10.3); CREATININE 0.8 mg/dL (0.4-1.0); POTASSIUM 3.8 mmol/L (3.5-5.0); TOTAL PROTEIN 6.5 g/dL (6.7-8.2)
[2022-09-28] MEDS ORDERED: SODIUM CHLORIDE 0.9% 1,000 ML IV STA (00:31)
[2022-09-28] MEDS ORDERED: ONDANSETRON 4 MG/2 ML VIAL IVP STA (00:31)
[2022-09-28] MEDS ORDERED: HYDROmorphone 0.5 MG/0.5 ML SYRINGE IVP STA (00:31)
[2022-09-28] MEDS ORDERED: KETOROLAC 15 MG/ML VIAL IVP STA (00:31)
[2022-09-28 01:26] LABS: BILIRUBIN,URINE NEGATIVE (NEGATIVE); GLUCOSE, URINE (UA) NEGATIVE (NEGATIVE); KETONES,URINE (UA) TRACE mg/dL (NEGATIVE); LEUKOCYTE ESTERASE, URINE NEGATIVE (NEGATIVE); NITRITE,URINE NEGATIVE (NEGATIVE); OCCULT BLOOD,URINE LARGE (NEGATIVE); PH,URINE 5.5 PH (5.0-7.5); PROTEIN,URINE 30 mg/dL (NEGATIVE); UROBILINOGEN,URINE 0.2 (NORMAL) E.U./dL (NORMAL)
[2022-09-28 01:27] LABS: CLARITY,URINE CLEAR (CLEAR)
[2022-09-28 01:32] LABS: BACTERIA,URINE Few /HPF (None Seen); MUCUS,URINE Few Strands; SQUAMOUS EPITHELIAL CELL,UR MOD Squamous (<= Few); WBC,URINE 0-3 /HPF (0-5)
[2022-09-28 02:40] VITALS: BP 113/76
== END 2022-09-28 02:39 | disposition home or self-care (01) ==
LOC: EDUNIT# → ED 23:17
DX: R11.2 Nausea with vomiting, unspecified (principal); M54.50 Low back pain, unspecified
CPT/HCPCS: 36415; 80053; 81001; 83690; 85025; 96361; 96374; 96375; 99283; 99284; J1170; 81003; 87086

== ENCOUNTER 2023-04-02 13:37 | Outpatient (CLI) | payer MEDICAID | END 2023-04-02 13:38 | disposition home or self-care (01) | LOC: LAB.N 13:37 | PROVIDERS: ATTEND Physician Assistant | DX: N91.2 Amenorrhea, unspecified (principal) | CPT/HCPCS: 36415; 84703 ==

== ENCOUNTER 2023-04-03 08:00 | Outpatient (CLI) | payer MEDICAID ==
[2023-04-03 18:17] LABS: HCG,QUALITATIVE BLOOD POSITIVE
== END 2023-04-03 23:59 | disposition home or self-care (01) ==
LOC: LAB.N 08:00
PROVIDERS: ATTEND Physician Assistant
DX: N91.2 Amenorrhea, unspecified (principal)
CPT/HCPCS: 36415; 84703